=== PATIENT | female | born 1985 | race Two or more races ===

== ENCOUNTER 2017-06-02 16:08 | Emergency (ER) | payer OTHER ==
[~2017-06-02] VITALS: Ht 157.5 cm; Wt 56.2 kg
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
--- NOTE | 2017-06-02 16:32 | NUR ---
DR MALONE AT BEDSIDE FOR EVAL.
--- NOTE | 2017-06-02 17:01 | NUR ---
Patient discharged to home in stable condition. Written and verbal after care instructions given. Patient verbalizes understanding of instruction.
[2017-06-02 17:04] VITALS: BP 182/81
== END 2017-06-02 17:01 | disposition home or self-care (01) ==
LOC: ER 16:10
DX: S06.0X9A Concussion with loss of consciousness of unspecified duration, initial encounter (principal); R51 Headache; H53.8 Other visual disturbances; G43.909 Migraine, unspecified, not intractable, without status migrainosus; Z91.02 Food additives allergy status; X58.XXXA Exposure to other specified factors, initial encounter; Y93.89 Activity, other specified; Y92.89 Other specified places as the place of occurrence of the external cause; Y99.9 Unspecified external cause status
CPT/HCPCS: A4606; Z7610